=== PATIENT | male | born 1960 | race Caucasian/White ===

== ENCOUNTER → 2018-04-22 | Outpatient (CLI) | payer BC | LOC: BRMIMAGING 09:31 | PROVIDERS: ATTEND Physician Assistant | DX: N62 Hypertrophy of breast (principal) | CPT/HCPCS: 76641-PO ==

== ENCOUNTER → 2018-07-10 | Outpatient (CLI) | payer BC | LOC: BRMIMAGING 11:35 | PROVIDERS: ATTEND Physician Assistant | DX: M79.644 Pain in right finger(s) (principal) | CPT/HCPCS: 73130-PO ==